=== PATIENT | female | born 1975 | race African-American/Black ===

== ENCOUNTER 2020-07-05 17:52 | Inpatient (IN) | payer OTHER ==
[2020-07-05] VITALS (11 sets, daily range): BP systolic 121–242; BP diastolic 73–141
[~2020-07-05] VITALS: Ht 167.6 cm; Wt 109.2 kg
[2020-07-05] MEDS ORDERED: MUCINEX1200 MG PO (18:21)
[2020-07-05 18:45] LABS: ABSOLUTE NEUTROPHILS 7.3 thou/uL (1.4-8.2); BASOPHILS 1.6 % (0.0-2.0); EOSINOPHILS 2.5 % (0.0-3.0); LYMPHOCYTES 17.5 % (24.0-44.0); MCH 18.4 pg (26.0-34.0); MCHC 28.4 g/dL (28.0-37.0); MCV 64.9 fL (80.0-100.0); MONOCYTES 5.2 % (1.0-8.0); PLATELET COUNT 339 thou/uL (150-400); POLYS 73.2 % (36.0-66.0); RBC 2.81 mil/uL (4.20-5.00); RDW 22.1 % (10.5-14.5)
[2020-07-05 18:50] LABS: HEMOGLOBIN 5.2 gm/dL (12.0-15.0)
[2020-07-05 18:51] LABS: HEMATOCRIT 18.3 % (37.0-47.0)
[2020-07-05 18:52] LABS: ANION GAP 8 mmol/L (7-16); BUN 10 mg/dL (7-18); CALCIUM 8.7 mg/dL (8.5-10.1); CHLORIDE 104 mmol/L (98-107); CO2 27 mmol/L (21-32); CREATININE 1.1 mg/dL (0.6-1.0); GLUCOSE 111 mg/dL (74-106); POTASSIUM 3.5 mmol/L (3.5-5.1); SODIUM 139 mmol/L (136-145)
[2020-07-05 19:01] LABS: ALBUMIN 2.9 g/dL (3.4-5.0); SGOT 64 U/L (15-37); SGPT 55 U/L (14-59); TOTAL BILIRUBIN 0.7 mg/dL (0.2-1.0); TOTAL PROTEIN 6.7 g/dL (6.4-8.2); TROPONIN-I <0.06 ng/mL (<0.06)
[2020-07-05 19:44] LABS: APTT 22.2 Seconds (24.5-32.8); INR 1.06; PROTIME 11.5 Seconds (9.3-11.4)
[2020-07-05 20:01] LABS: LARGE PLATELETS FEW; OVALOCYTES 1+; POLYCHROMASIA 1+; TEARDROPS FEW
[2020-07-05 20:02] LABS: SCHISTOCYTES FEW; TARGET CELLS 1+
[2020-07-05 23:52] LABS: % SATURATION 4 % (20-39); IRON 19 ug/dL (50-170); TIBC 535 ug/dL (250-450)
[2020-07-06] VITALS (30 sets, daily range): BP systolic 126–203; BP diastolic 52–131
[2020-07-06 00:19] LABS: FOLIC ACID 9.3 ng/mL (8.6-58.9)
[2020-07-06 02:37] LABS: HEMOGLOBIN 8.7 gm/dL (12.0-15.0); MCH 20.4 pg (26.0-34.0); MCHC 28.1 g/dL (28.0-37.0); MCV 72.8 fL (80.0-100.0); RBC 4.25 mil/uL (4.20-5.00); RDW 25.8 % (10.5-14.5); WBC 10.1 thou/uL (4.0-11.0)
[2020-07-06 02:43] LABS: CALCIUM 9.4 mg/dL (8.5-10.1); MAGNESIUM 1.6 mg/dL (1.8-2.4); POTASSIUM 3.4 mmol/L (3.5-5.1)
--- NOTE | 2020-07-06 12:47 | 2DMMODE ---
[facility] [address] 2 D/M-MODE ECHOCARDIOGRAM Name: MICHEL LERNER Room #: 244-P ADM IN M.R.#: [id number] Admission: 07/05/20 Attend Phys: Jose Knapp MD Discharge: Date of : 75 Report #: [id number] THIS REPORT FOR: cc: FAM - Family physician unknown FAM - Family physician unknown Bobby Kimbrough MD ~ APPROVED REPORT Study performed: 07/06/2020 09:10:14 EXAM: Comprehensive 2D, Doppler, and color-flow Echocardiogram Patient Location: ICU Room #: 244 Status: routine BSA: 2.16 HR: 75 bpm BP: 171/108 mmHg Rhythm: NSR Other Information Study Quality: Good Indications Short of breath, leg swelling, elevated BNP, CHF, HTN urgency. Hx: HTN, tobacco abuse. 2D Dimensions RVDd: 40.93 mm IVSd: 17.25 (7-11mm) LVOT Diam: 21.06 (18-24mm) LVDd: 46.35 mm PWd: 17.29 (7-11mm) Ascending Ao: 31.77 (22-36mm) LVDs: 33.53 (25-40mm) Left Atrium: 44.91 (27-40mm) Aortic Root: 34.57 mm Volumes Left Atrial Volume (Systole) Single Plane 4CH: 119.35 mL Single Plane 2CH: 102.57 mL LA ESV Index: 55.00 mL/m2 Aortic Valve AoV Peak Abe.: 1.98 m/s AO Peak Gr.: 15.64 mmHg LVOT Max P.79 mmHg LVOT Max V: 1.48 m/s [facility] [address] [place] [address] 2 D/M-MODE ECHOCARDIOGRAM Name: MICHEL LERNER Room #: 244-P [place] [facility]#: [id number] Admission: 07/05/20 Attend Phys: Jose Knapp, Discharge: Date of : 75 Report #: [id number] RONDA Vmax: 2.61 cm2 Mitral Valve E/A Ratio: 1.2 MV Decel. Time: 232.64 ms MV E Max Abe.: 1.03 m/s MV A Abe.: 0.87 m/s MV PHT: 67.47 ms IVRT: 92.27 ms Pulmonary Valve PV Peak Abe.: 1.10 m/s PV Peak Gr.: 4.84 mmHg Pulmonary Vein P Vein S: 0.58 m/s P Vein A: 0.23 m/s P Vein D: 0.47 m/s P Vein A Dur.: 96.9 msec P Vein S/D Ratio: 1.23 Tricuspid Valve TR Peak Abe.: 2.61 m/s RAP Estimate: 5.00 mmHg TR Peak Gr.: 27.22 mmHg PA Pressure: 32.00 mmHg Left Ventricle The left ventricle is normal size. There is normal LV segmental wall motion. Moderate concentric left ventricular hypertrophy. Left ventricular systolic function is normal. LVEF is 55-60%. Grade II - pseudonormal filling dynamics. Right Ventricle The right ventricle is normal size. The right ventricular systolic function is normal. Atria Moderate biatrial enlargement. Aortic Valve The aortic valve is normal in structure. No aortic regurgitation is present. There is no aortic valvular stenosis. Mitral Valve The mitral valve is normal in structure. Trace mitral regurgitation. No evidence of mitral valve stenosis. Tricuspid Valve The tricuspid valve is normal in structure. Trace tricuspid [facility] [address] [place] [address] 2 D/M-MODE ECHOCARDIOGRAM Name: MICHEL LERNER Room #: 244-P [place] .R.#: [id number] Admission: 07/05/20 Attend Phys: Jose Knapp, Discharge: Date of : 75 Report #: [id number] regurgitation. Pulmonic Valve The pulmonary valve is normal in structure. Great Vessels The aortic root is normal in size. The ascending aorta is normal in size. IVC is normal in size and collapses >50% with inspiration. Pericardium There is no pericardial effusion. <Conclusion> The left ventricle is normal size. Moderate concentric left ventricular hypertrophy. Left ventricular systolic function is normal. Grade II - pseudonormal filling dynamics. The right ventricle is normal size. Moderate biatrial enlargement. The aortic valve is normal in structure. Trace mitral regurgitation. Trace tricuspid regurgitation. <ELECTRONICALLY SIGNED> By: Bobby Kimbrough MD 07/06/20 1246 1246 1246 Bobby Kimbrough MD /INF
--- NOTE | 2020-07-06 17:28 | EKG ---
[place] [address] [facility] [place] [address] ELECTROCARDIOGRAM REPORT Name: MICHEL LERNER Room #: 212-P ADM IN M.R.#: [id number] Admission: 07/05/20 Attend Phys: Jose Knapp MD Discharge: Date of : 75 Report #: [id number] [facility] ED Test Date: 2020-07-05 Test Time: 18:50:07 Pat Name: MICHEL LERNER Department: Patient ID: [id number] Room: Gender: F Manager Membership: RITESH NUNEZ : 1975 Requested By: Akanksha Neri Order Number: [id number] MD: Shyam Martin Measurements Intervals [place] Rate: 93 P: 66 KS: 173 QRS: -12 QRSD: 103 T: 60 QT: 397 QTc: 494 Interpretive Statements Incomplete analysis due to missing data in precordial lead(s) Sinus rhythm Probable left atrial enlargement Abnormal R-wave progression, late transition Borderline prolonged QT interval Baseline wander in lead(s) II,III,aVL,aVF,V2,V3,V5,V6 Recommend repeat tracing with all leads present Electronically Signed On 07-06-2020 17:28:19 CDT by Shyam Martin [email or web address] <ELECTRONICALLY SIGNED> By: Shyam Martin MD, FAC 07/06/20 1728 49 49 Shyam Martin MD, FAC /EPI
[2020-07-06 23:06] LABS: GLYCOHEMOGLOBIN (HGB A1C) 5.5 % (4.8-5.6)
[2020-07-07] VITALS (7 sets, daily range): BP systolic 144–201; BP diastolic 84–99
[2020-07-07 05:24] LABS: HEMOGLOBIN 8.2 gm/dL (12.0-15.0); MCH 21.2 pg (26.0-34.0); MCHC 30.2 g/dL (28.0-37.0); MCV 70.3 fL (80.0-100.0); RBC 3.84 mil/uL (4.20-5.00); RDW 25.2 % (10.5-14.5); WBC 10.5 thou/uL (4.0-11.0)
[2020-07-07 05:52] LABS: CALCIUM 8.9 mg/dL (8.5-10.1); CREATININE 1.1 mg/dL (0.6-1.0); MAGNESIUM 1.7 mg/dL (1.8-2.4); POTASSIUM 3.8 mmol/L (3.5-5.1)
[2020-07-08 04:49] VITALS: BP 184/82
[2020-07-08 07:57] VITALS: BP 168/85
[2020-07-08] MEDS ORDERED: FELODIPINE ER10 MG PO (10:36)
[2020-07-08] MEDS ORDERED: IRON325 PO (10:36)
[2020-07-08] MEDS ORDERED: CARVEDILOL25 MG PO (10:36)
[2020-07-08] MEDS ORDERED: PROTONIX40 M2 PO (10:37)
[2020-07-08 14:07] VITALS: BP 126/52
== END 2020-07-08 14:35 | disposition home or self-care (01) | DRG 384 ==
LOC: ER 17:52 → EROBS 20:35 → 2N 20:35 → ICU 21:33 → 2N 07-06 17:11
PROVIDERS: Nurse Practitioner; Nurse Practitioner Family; Physician Assistant; ADMIT Hospitalist; ATTEND Hospitalist
PROC: 30233N1 Transfusion of Nonautologous Red Blood Cells into Peripheral Vein, Percutaneous Approach (ICD-10-PCS; principal; 2020-07-05)
PROC: 0DB98ZX Excision of Duodenum, Via Natural or Artificial Opening Endoscopic, Diagnostic (ICD-10-PCS; 2020-07-08)
PROC: 0DB78ZX Excision of Stomach, Pylorus, Via Natural or Artificial Opening Endoscopic, Diagnostic (ICD-10-PCS; 2020-07-08)
DX: K25.9 Gastric ulcer, unspecified as acute or chronic, without hemorrhage or perforation (principal); D62 Acute posthemorrhagic anemia; I47.1 Supraventricular tachycardia; I16.0 Hypertensive urgency; I50.9 Heart failure, unspecified; F17.210 Nicotine dependence, cigarettes, uncomplicated; R68.81 Early satiety; F32.9 Major depressive disorder, single episode, unspecified; F41.9 Anxiety disorder, unspecified; F43.23 Adjustment disorder with mixed anxiety and depressed mood; I11.0 Hypertensive heart disease with heart failure; K44.9 Diaphragmatic hernia without obstruction or gangrene; K64.8 Other hemorrhoids; Z20.822 Contact with and (suspected) exposure to COVID-19; Z88.0 Allergy status to penicillin; Z83.3 Family history of diabetes mellitus; Z82.49 Family history of ischemic heart disease and other diseases of the circulatory system; Z82.3 Family history of stroke; Z71.6 Tobacco abuse counseling
CPT/HCPCS: 10078; 10081; 10797; 70005